=== PATIENT | female | born 1990 | race Caucasian/White ===

== ENCOUNTER → 2017-06-19 17:30 | Observation (INO) ==
[2017-06-19 15:46] LABS: Basophils # 0.1 K/mcL (0.0-0.2); Basophils % 0.3 %; Eosinophils # 0.5 K/mcL (0.0-0.6); Eosinophils % 2.8 %; Hemoglobin 10.9 g/dL (11.5-15.4); Lymphocytes # 3.6 K/mcL (0.6-4.6); Lymphocytes % 18.3 %; Mean Corpuscular HGB Conc 32.1 g/dL (31.6-35.5); Mean Corpuscular Hemoglobin 25.2 pg (28.0-33.3); Mean Corpuscular Volume 78.5 fL (83.0-100.0); Monocytes # 0.6 K/mcL (0.0-1.3); Monocytes % 3.2 %; Neutrophils # 14.4 K/mcL (1.6-8.9); Platelet Count 470 K/mcL (140-400); Red Blood Count 4.33 M/mcL (3.82-4.97); Red Cell Distribution Width 14.4 % (11.5-14.5); Segmented Neutrophils % 74.4 %
[2017-06-19 15:48] LABS: Bilirubin,Urine Negative (Negative); Blood,Urine Negative (Negative); Clarity,Urine Cloudy (Clear); Color,Urine Yellow (Yellow); Glucose,Urine (UA) Normal (Normal); Ketones,Urine Negative (Negative); Leukocyte Esterase,Urine Large (Negative); Nitrite,Urine Negative (Negative); PH,Urine 6.5 pH Units (5.0-8.0); Protein,Urine Trace mg/dL (Neg-Trace); Specific Gravity,Urine 1.017 (1.010-1.025); Urobilinogen,Urine Normal (Normal)
[2017-06-19 15:50] LABS: Bacteria,Urine Few per hpf (None-Few); Hyaline Casts,Urine None Seen per lpf (None-Few); RBC,Urine 0-3 per hpf (0-3); Squamous Epithelial Cell,Urine Many per lpf (None-Few)
[2017-06-19 15:56] LABS: Amphetamine Screen,Urine Negative ng/mL (Cutoff=1000); Barbiturate Screen,Urine Negative ng/mL (Cutoff=200); Benzodiazepines Screen,Urine Negative ng/mL (Cutoff=200); Cannabinoid Screen,Urine Negative ng/mL (Cutoff = 50); Cocaine Screen,Urine Negative ng/mL (Cutoff= 300); Opiate Screen,Urine Negative ng/mL (Cutoff=300); Phencyclidine Screen,Urine Negative ng/mL (Cutoff=25)
[2017-06-19 15:57] LABS: Protein/Creatinine Ratio,Urine 0.24 mg/mg (0-0.20)
[2017-06-19 16:09] LABS: Alanine Aminotransferase 13 Units/L (0-55); Aspartate Amino Transferase 11 Units/L (5-34); BUN/Creatinine Ratio 8 (6-26); Lactate Dehydrogenase 136 Units/L (159-327); Uric Acid 4.2 mg/dL (2.6-6.0); eGFR For African Americans > 60 (> 60); eGFR For Non-African Americans > 60 (> 60)
[2017-06-19 16:10] LABS: Blood Urea Nitrogen 5 mg/dL (7-20)
[~2017-06-19 17:30] MED LIST: Ringers Solution, Lactated 1,000 ML IVC SCH
--- NOTE | 2017-06-19 17:41 | OB/GYN Progress Note ---
Date of Encounter: 06/19/17 Time of Encounter: 17:40 - Assessment and Plan (1) 35 weeks gestation of Current Visit: Yes Status: Acute monitoring and PIH evaluation (2) Non-stress test reactive Current Visit: Yes Status: Acute FHR 135 bpm, moderate variability, +15x15 accels, no decels. (3) Hypertension affecting in third trimester Current Visit: Yes Status: Acute PIH labs drawn, WNL. BP range from 120's-130's over 60's. Highest BP 129/93 immediately after she was up in room. Retake 137/86. Subjective - Subjective Principal diagnosis: PIH evaluation Interval history: Tabby was sent from office by Dr. Shaw for BP of 152/100 in office with + urine dip protein. PIH labs drawn and all WNL. Pt denies s/s of preeclampsia and UTI. Reflexes +1 upper and lower extremities. Pt notified of normal labwork and normal BP while she was here. Instructions provided on s/s of preeclampsia and instructed to return if any of these signs presented. She is scheduled to see Dr. Shaw in 2 weeks. Antepartum ROS: movement normal, no loss of fluid, no vaginal bleeding, no contractions Objective - Vital Signs Vital Signs: Intake and Output 06/19/17 06/19/17 06/19/17 07:59 15:59 23:59 Other: Weight 138 kg Patient Weight 06/19/17 23:59 Weight 138 kg - Exam FHR: category 1 FHR comments: FHR 135 bpm, moderate variability, + 15x15 accels, no decels. Category I tracing. Auscultation: bilateral: normal Abdomen: Present: normal appearance, soft, gravid Uterus: Present: normal Cervical dilation: Deferred - Labs Labs: Abnormal lab results WBC 19.4 K/mcL (4.3-11.1) H 06/19/17 15:30 Hgb 10.9 g/dL (11.5-15.4) L 06/19/17 15:30 Hct 34.0 % (35.3-44.9) L 06/19/17 15:30 MCV 78.5 fL (83.0-100.0) L 06/19/17 15:30 MCH 25.2 pg (28.0-33.3) L 06/19/17 15:30 Plt Count 470 K/mcL (140-400) H 06/19/17 15:30 Neutrophils # 14.4 K/mcL (1.6-8.9) H 06/19/17 15:30 BUN 5 mg/dL (7-20) L 06/19/17 15:30 Lactate Dehydrogenase 136 Units/L (159-327) L 06/19/17 15:30 Urine Clarity Cloudy (Clear) A 06/19/17 15:30 Ur Leukocyte Esterase Large (Negative) H 06/19/17 15:30 Urine Microscopic WBC 3-5 per hpf (0-3) H 06/19/17 15:30 Ur Squamous Epith Cells Many per lpf (None-Few) H 06/19/17 15:30 Protein/Creatinin Ratio 0.24 mg/mg (0-0.20) H 06/19/17 15:30 Urine Total Protein 21 mg/dL (1-14) H 06/19/17 15:30
== END | disposition home or self-care (01) ==
LOC: 1NENULAB
PROVIDERS: ADMIT Obstetrics & Gynecology; ATTEND Obstetrics & Gynecology

== ENCOUNTER → 2017-06-24 00:50 | Observation (INO) ==
[2017-06-23 23:24] LABS: Bilirubin,Urine Negative (Negative); Blood,Urine Negative (Negative); Clarity,Urine Cloudy (Clear); Color,Urine Yellow (Yellow); Glucose,Urine (UA) Normal (Normal); Ketones,Urine Negative (Negative); Leukocyte Esterase,Urine Small (Negative); Nitrite,Urine Negative (Negative); Protein,Urine Trace mg/dL (Neg-Trace); Specific Gravity,Urine 1.021 (1.010-1.025); Urobilinogen,Urine Normal (Normal)
[2017-06-23 23:27] LABS: Bacteria,Urine Few per hpf (None-Few); Hyaline Casts,Urine None Seen per lpf (None-Few); Squamous Epithelial Cell,Urine Many per lpf (None-Few)
[2017-06-23 23:29] LABS: Amphetamine Screen,Urine Negative ng/mL (Cutoff=1000); Barbiturate Screen,Urine Negative ng/mL (Cutoff=200); Benzodiazepines Screen,Urine Negative ng/mL (Cutoff=200); Cannabinoid Screen,Urine Negative ng/mL (Cutoff = 50); Cocaine Screen,Urine Negative ng/mL (Cutoff= 300); Opiate Screen,Urine Negative ng/mL (Cutoff=300); Phencyclidine Screen,Urine Negative ng/mL (Cutoff=25)
[2017-06-23 23:39] LABS: Amorphous Sediment,Urine Few (Few)
--- NOTE | 2017-06-24 01:00 | OB/GYN Progress Note ---
Date of Encounter: 06/24/17 Time of Encounter: 00:58 - Assessment and Plan (1) 36 weeks gestation of Current Visit: Yes Status: Acute (2) NST (non-stress test) reactive Current Visit: Yes Status: Acute baseline 135 (3) Back pain affecting in third trimester Current Visit: Yes Status: Acute No cervical change on serial exams. Discharged to home with labor and when to return to triage precautions. Subjective - Subjective Interval history: 36+5 presents to triage with complaints of back pain. Pt states back pain started around 1800 and felt movement was decreased today, Denies vaginal bleeding, contractions, or leaking of fluid. Antepartum ROS: no loss of fluid, no vaginal bleeding, no movement normal , no contractions Objective - Vital Signs Vital Signs: Intake and Output 06/23/17 06/23/17 06/24/17 15:59 23:59 07:59 Other: Weight 137.6 kg - Exam FHR: auscultation normal FHR comments: Baseline 135 Cervical dilation: 2/50/-1 - Labs Labs: Abnormal lab results Urine Clarity Cloudy (Clear) A 06/23/17 23:05 Ur Leukocyte Esterase Small (Negative) H 06/23/17 23:05 Urine Microscopic WBC 3-5 per hpf (0-3) H 06/23/17 23:05 Ur Squamous Epith Cells Many per lpf (None-Few) H 06/23/17 23:05 Ur Culture Indicated? YES (NO) A 06/23/17 23:05
== END | disposition home or self-care (01) ==
LOC: 1NENULAB
PROVIDERS: ADMIT Obstetrics & Gynecology; ATTEND Obstetrics & Gynecology